=== PATIENT | male | born 1960 | race Two or more races ===

== ENCOUNTER 2019-02-15 17:22 | Emergency (ER) | payer OTHER | END 2019-02-15 21:30 | disposition home or self-care (01) | LOC: FTE 17:22 | DX: H43.392 Other vitreous opacities, left eye (principal); I10 Essential (primary) hypertension | CPT/HCPCS: 99282; Z7502 ==

== ENCOUNTER 2019-02-16 20:11 | Emergency (ER) | payer SELFPAY, OTHER | END 2019-02-16 22:04 | disposition left against medical advice (07) | LOC: FTE 20:11 | DX: Z53.21 Procedure and treatment not carried out due to patient leaving prior to being seen by health care provider (principal) ==